=== PATIENT | male | born 1970 | race Caucasian/White ===

== ENCOUNTER 2019-04-20 10:59 | Day surgery (SDC) | payer OTHER ==
[2019-04-19 15:10] VITALS: BMI 36.9
[2019-04-20] MEDS ORDERED: PROPOFOL 20 ML ONE ×3 (12:43→12:58)
[2019-04-20] MEDS ORDERED: ROCURONIUM BROMIDE 50 MG/5 ML VIAL ONE (12:44)
[2019-04-20] MEDS ORDERED: KETOROLAC TROMETHAMINE 30 MG/1 ML VIAL ONE (12:47)
[2019-04-20] MEDS ORDERED: DEXAMETHASONE SOD PHOSPHATE 4 MG/1 ML VIAL ONE (12:47)
[2019-04-20] MEDS ORDERED: ONDANSETRON 4 MG/2 ML VIAL ONE ×2 (12:47→12:48)
[2019-04-20] MEDS ORDERED: NEOSTIGMINE METHYLSULFATE 0.5 MG/ML - 10 ML MDV ONE (12:48)
[2019-04-20] MEDS ORDERED: BUPIVACAINE HCL/PF 0.5% (5MG/ML) 10 ML VIAL ONE (12:55)
[2019-04-20] MEDS ORDERED: LIDOCAINE HCL 1% PRESERVATIVE FREE - 30ML VIAL ONE (12:56)
[2019-04-20] MEDS ORDERED: MIDAZOLAM HCL 2 MG/2 ML SINGLE DOSE VIAL ONE (13:16)
[2019-04-20] MEDS ORDERED: ceFAZolin SODIUM 1 GM VIAL ONE ×2 (13:26)
[2019-04-20] MEDS ORDERED: oxyCODONE HCL 5 MG TABLET PO PRN (14:07)
--- NOTE | 2019-04-20 15:19 | OP ---
DATE OF OPERATION: 04/20/2019 PREOPERATIVE DIAGNOSIS: Umbilical hernia with symptoms. POSTOPERATIVE DIAGNOSIS: Umbilical hernia with symptoms. PROCEDURE: Repair of the umbilical hernia with mesh with excision of the sac. SURGEON: Rajani Velazquez MD ANESTHESIA: Local with sedation. The patient was brought to the operating room. Intravenous antibiotics and local with Marcaine was given. Abdomen was prepped and draped. A circumumbilical incision was made. It was lifted and the sac was identified, dissected away from the fascia. About 3-cm defect was cleared from all the attachment, and once the sac was removed, and once the posterior wall of the anterior abdominal wall was found to be totally clear, a 4.3-cm mesh was introduced and the 2 flaps were sutured to the fascia and 4 additional sutures were done to prevent any leakage through any holes between the hernial mesh and the abdominal wall, and once all the sites were fixed, subcutaneous tissue and skin were closed. Patient went to the recovery room in stable condition. RAJANI VELAZQUEZ M.D. [id number]
[2019-04-20 16:08] VITALS: TEMP 98.2
[2019-04-20 16:16] VITALS: BP 127/75; PULSE 55
--- NOTE | 2019-04-25 13:31 | PATH ---
Surgical Pathology Report Patient Name: MYRNA WILDER [facility]. Rec. #: [id number] /Age/Gender: 1970 (Age: 48) / M Account: [id number] Location: [facility] AMBULATORY Taken: 04/20/2019 Received: 04/20/2019 Reported: 04/25/2019 Physicians: Rajani Velazquez M.D. Specimen(s) Received HERNIA SAC Clinical History Umbilical hernia Final Diagnosis HERNIA SAC, REPAIR: HERNIA SAC. Electronically Signed Marley Mullen M.D. Gross Description Received in formalin labeled "hernia sac," is a 3.0 x 2.5 x 1.7 cm wahl adams, saccular portion of fibromembranous tissue, consistent with a hernia sac. Supervisor General sections are submitted in one cassette. /04/22/201904/22/2019
== END 2019-04-20 16:00 | disposition home or self-care (01) ==
LOC: FASU 10:59
PROVIDERS: ATTEND Surgery Vascular Surgery
PROC: 0WUF0JZ Supplement Abdominal Wall with Synthetic Substitute, Open Approach (ICD-10-PCS; principal; 2019-04-20 13:00)
DX: K42.9 Umbilical hernia without obstruction or gangrene (principal)
CPT/HCPCS: 88302-TC; 94760

== ENCOUNTER 2019-07-18 11:53 | Emergency (ER) | payer OTHER ==
[2019-07-18 12:00] VITALS: BP 120/68; PULSE 55; TEMP 97.6; BMI 36.3
[2019-07-18] MEDS ORDERED: KETOROLAC TROMETHAMINE 60 MG/2 ML VIAL IM ONE (12:46)
[2019-07-18] MEDS ORDERED: KETOROLAC TROMETHAMINE 60 MG/2 ML VIAL ONE (13:03)
--- NOTE | 2019-07-18 13:54 | PDOC ---
History of Present Illness - General Chief Complaint: Pain Stated Complaint: FLANK PAIN Time Seen by Provider: 07/18/19 12:25 History Source: Patient Exam Limitations: No Limitations - History of Present Illness Initial Comments: 07/18/19 13:03 48-year-old male presents to ED with complaints of left upper abdominal and rib pain describes an aching sensation worsened with movement and deep breathing since Thursday. 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 Patient states has been taking Motrin with no improvement and feels of a little lump over his ribs. patient denies shortness of breath, palpitations, or recent injury to affected area. Is this a multiple visit Asthma Patient?: No Timing/Duration: intermittent Severity: mild Associated Symptoms: reports: other Past History - Travel Traveled outside of the country in the last 30 days: No Close contact w/someone who was outside of country & ill: No - Past Medical History Allergies/Adverse Reactions: Allergies Allergy/AdvReac Type Severity Reaction Status Date / Time almond Allergy Difficulty Verified 04/20/19 14:16 Breathing carrot Allergy Verified 07/18/19 12:01 peanut Allergy Difficulty Verified 04/20/19 14:16 Breathing almond milk Allergy Difficulty Uncoded 04/19/19 14:52 Breathing raw peanuts Allergy Difficulty Uncoded 04/19/19 14:52 Breathing Home Medications: Ambulatory Orders Levothyroxine [Synthroid -] 200 mcg PO DAILY 03/24/16 Multivitamin [One-Daily Multi-Vitamin] 1 each PO DAILY 04/19/19 Valsartan 320 mg PO DAILY 04/19/19 Oxycodone HCl/Acetaminophen [Percocet 5-325 mg Tablet] 1 - 2 tab PO Q6H PRN #12 tab MDD 4 07/18/19 Anemia: No Asthma: No Cancer: No Cardiac Disorders: No CVA: No COPD: No CHF: No Dementia: No Diabetes: No GI Disorders: No Disorders: No HTN: Yes Hypercholesterolemia: No Liver Disease: No Seizures: No Thyroid Disease: Yes - Surgical History Abdominal Surgery: Yes (Gastric Sleeve 2017, UMBLICAL HERNIA) Appendectomy: No Cardiac Surgery: No Cholecystectomy: No Lung Surgery: No Neurologic Surgery: No Orthopedic Surgery: No - Psycho Social/Smoking Cessation Hx Smoking History: Never smoked Have you smoked in the past 12 months: No Hx Alcohol Use: Yes Drug/Substance Use Hx: No Substance Use Type: None Hx Substance Use Treatment: No Patient Lives Alone: No Lives with/in: spouse/SO Review of Systems - Review of Systems Able to Perform ROS?: Yes Constitutional: No: Symptoms Reported HEENTM: No: Symptoms Reported Respiratory: No: Symptoms reported Cardiac (ROS): No: Symptoms Reported ABD/GI: No: Symptoms Reported : No: Symptoms Reported Musculoskeletal: Yes: Muscle Pain Integumentary: No: Symptoms Reported Neurological: No: Symptoms reported Endocrine: No: Symptoms Reported Hematologic/Lymphatic: No: Symptoms Reported *Physical Exam - Vital Signs Last Vital Signs Temp Pulse Resp BP Pulse Ox 97.6 F 55 L 16 120/68 96 07/18/19 11:57 07/18/19 11:57 07/18/19 11:57 07/18/19 11:57 07/18/19 11:57 - Physical Exam General Appearance: Yes: Nourished, Appropriately Dressed. No: Apparent Distress Neck: positive: Normal Thyroid Respiratory/Chest: positive: Chest Tender (left lower ribs at mcl . No crepitus/ deformity. 2 " palpable semifrim mass to area. Skin color intact), Lungs Clear, Normal Breath Sounds. negative: Respiratory Distress, Accessory Muscle Use Cardiovascular: positive: Regular Rhythm, Bradycardia. negative: Murmur Gastrointestinal/Abdominal: positive: Soft. negative: Tenderness Musculoskeletal: negative: CVA Tenderness Integumentary: positive: Normal Color, Warm, Moist Neurologic: positive: Motor Strength 5/5 (ambulatory) ED Treatment Course - RADIOLOGY Radiology Studies Ordered: Category Date Time Status RIBS-LEFT SIDE [RAD] Stat Radiology 07/18/19 12:46 Ordered - Medications Given in the ED: ED Medications Discontinued Medications Generic Name Dose Route Start Last Admin Trade Name Freq PRN Reason Stop Dose Admin Ketorolac Tromethamine 60 mg 07/18/19 12:46 07/18/19 13:29 Toradol Injection - IM 07/18/19 12:47 60 mg ONCE ONE Administration Medical Decision Making - Medical Decision Making 07/18/19 13:08 CC: left chest /rib pain after moving shingles on thursday, motrin taken with no relief, no discomfort at rest , only with movement or palpation . no other complaints Exam: Reproducible left rib tenderness at 10-11th ribs at mcl, palpable raised mass to area Plan: ribs xray and toradol im 07/18/19 14:11 xray - for acute findings. pt with mod improvement of pain, percocet and light duty work note given. Likely muscle strain/ partial tear Discharge - Discharge Information Problems reviewed: Yes Clinical Impression/Diagnosis: Injury of muscle of abdomen Condition: Improved Disposition: HOME - Admission No - Additional Discharge Information Prescriptions: Oxycodone HCl/Acetaminophen [Percocet 5-325 mg Tablet] 1 - 2 tab PO Q6H PRN #12 tab MDD 4 PRN Reason: Pain - Follow up/Referral Referrals: Amandeep Richardson MD [Primary Care Provider] - - Patient Discharge Instructions Patient Printed Discharge Instructions: DI for Abdominal Muscle Strain Additional Instructions: Please avoid movements that trigger your discomfort. May apply heating pad to the affected area. May take Percocet as needed for nighttime and take Tylenol or Motrin during the day. If you to take the Percocet you are not to drink alcohol or operate any heavy machinery. If symptoms continue over the next few weeks at this severity please follow-up with your primary care doctor as you may require an MRI - Post Discharge Activity Work/Back to School Note: Back to Work
== END 2019-07-18 15:00 | disposition home or self-care (01) ==
LOC: JER 11:53
PROC: 3E0233Z Introduction of Anti-inflammatory into Muscle, Percutaneous Approach (ICD-10-PCS; principal; 2019-07-18)
DX: S39.011A Strain of muscle, fascia and tendon of abdomen, initial encounter (principal); X50.0XXA Overexertion from strenuous movement or load, initial encounter; Y93.89 Activity, other specified; Y92.69 Other specified industrial and construction area as the place of occurrence of the external cause; Y99.0 Civilian activity done for income or pay; Z91.010 Allergy to peanuts; Z91.018 Allergy to other foods
CPT/HCPCS: 71101-TC-LT-FY; 96372; 99282-25

== ENCOUNTER 2023-02-24 04:38 | Day surgery (SDC) | payer OTHER ==
[2023-02-19 13:56] VITALS: BMI 44.9
[2023-02-24 09:20] VITALS: TEMP 98
[2023-02-25 07:35] VITALS: BP 127/93; PULSE 53; RESP 18
== END 2023-02-24 09:55 | disposition home or self-care (01) ==
LOC: JASU-ENDO 04:38
PROVIDERS: ATTEND Student in an Organized Health Care Education/Training Program
PROC: 0DBM8ZX Excision of Descending Colon, Via Natural or Artificial Opening Endoscopic, Diagnostic (ICD-10-PCS; principal; 2023-02-24 08:00)
DX: Z12.11 Encounter for screening for malignant neoplasm of colon (principal); K63.5 Polyp of colon; K59.89 Other specified functional intestinal disorders; I10 Essential (primary) hypertension
CPT/HCPCS: 88305-TC

== ENCOUNTER 2023-03-04 11:39 | Emergency (ER) | payer OTHER ==
[2023-03-04 11:58] VITALS: BP 134/89; PULSE 77; RESP 18; TEMP 97.8; BMI 45.0
[2023-03-04] MEDS ORDERED: TETRACAINE 0.5% HCL 0.6ML DROPPER.BOTTLE OU ONE (13:08)
[2023-03-04] MEDS ORDERED: TETRACAINE 0.5% OPHTH SOLN 2 ML BOTTLE ONE (13:08)
[2023-03-04] MEDS ORDERED: FLUORESCEIN NA 1 EA STRIP OU ONE (13:08)
[2023-03-04] MEDS ORDERED: FLUORESCEIN NA 1 EA STRIP ONE (13:08)
== END 2023-03-04 13:35 | disposition home or self-care (01) ==
LOC: JER 11:39 → JERFT 11:39
DX: H57.89 Other specified disorders of eye and adnexa (principal); H10.33 Unspecified acute conjunctivitis, bilateral; S05.02XA Injury of conjunctiva and corneal abrasion without foreign body, left eye, initial encounter; X58.XXXA Exposure to other specified factors, initial encounter; Y99.0 Civilian activity done for income or pay
CPT/HCPCS: 99283-25